=== PATIENT | female | born 1980 | race Caucasian/White ===

== ENCOUNTER 2016-12-10 16:05 | Emergency (ER) | payer BC ==
[~2016-12-10] VITALS: Ht 177.8 cm; Wt 70.0 kg
[~2016-12-10 16:05] MED LIST: METH10TA4 PO; OXYC1TAB3 PO
[2016-12-10 16:09] VITALS: BP 137/80; PULSE 134; TEMP 36.9; O2SAT 99; Ht 177.8 cm; Wt 70.0 kg
--- NOTE | 2016-12-10 16:51 | EMERGENCY ROOM VISIT NOTE ---
ED Visit Note First contact with patient: 16:21 Chief Complaint: S/P Hysterectomy, Abdominal Pain History of Present Illness: Patient is a 35-year-old female who presents to the emergency department by private vehicle with her friend for evaluation of her pain and urinary issues after having a hysterectomy performed. She had a hysterectomy performed 6 days ago at the [facility]. She reports that since that time she's had pain since the surgery. She reports that her pain was so intense that she actually had to have a "nerve block" for her stay in the hospital. She was eventually discharged after pain was somewhat controlled. She reports that she's been taking Percocet 2 for her pain every 6 hours. She's been having consistent burning sensation to the incision site. In addition, she reports issues with urination including dribbling of urine when attempting to go. She's been constipated as well. She had a follow-up appointment with her [employer]MENT[employer]PER today who informed her that everything looked fine. She was provided outpatient orders for urinalysis. She rates her current discomfort as 6/10. Patient denies any fevers, chills, chest pain, palpitations , shortness of breath, nausea or vomiting. Medications: Reviewed and discussed with the patient. Allergies: Acetaminophen, propoxyphene PMH: No pertinent past medical history. SHx: Patient is a 35-year-old female who lives locally. ROS: All pertinent positive and negative review of systems are appropriately documented in the History of Present Illness. Physical Exam: VITAL SIGNS - Vital signs and nursing notes were reviewed. GENERAL - 35-year-old female appearing her stated age who is in no acute distress. Communicates well with provider and answers questions appropriately. ABDOMEN - well healing incision site noted in the suprapubic area. No dehiscence. No surrounding erythema, discharge, or drainage. Subjective tenderness to palpation in the lower abdomen. Bowel sounds distant. No rigidity or guarding. PSYCH - A&Ox3 and cooperates fully with examiner. Pt is very pleasant and interacts well with examiner. ED Course: Patient was seen and evaluated by myself. I had a lengthy conversation with the patient and her friend regarding ongoing symptoms. I did offer them imaging studies which she readily declines as she reports that she's had a CAT scan recently and is at risk for developing cancer. I did explain the patient' s symptoms could be equated to her narcotic pain medication use, particularly her voiding issues as well as her constipation. She had not thought of this to this point. Her incision does not appear infected. The patient had just seen her F[employer] CE[employer] DR[employer]PER today who had no suggestion and felt that she was doing well. She presented to the emergency department today for a "second opinion". At this point, the patient was comfortable with urinalysis dip which was found to be unremarkable. She was encouraged to decrease her narcotic pain use and increase [id number] medication for breakthrough symptoms. She was educated on worrisome symptoms for return visit to the emergency department. Patient discharged home afebrile and in good condition. In the evaluation and treatment of this patient, the following differential diagnoses were considered: Postoperative infection, retroperitoneal hematoma, cellulitis, amongst others. Impression: Postoperative Pain, Voiding Issues, Constipation Discharge Instructions: You've been seen in the emergency department today for your postoperative pain and voiding issues. Please decrease your narcotic use to help with your symptoms. For pain control, you can use the following [id number] medicines (if >12 yo): - Regular strength (325mg/tab) Tylenol (acetaminophen) 2 tabs every 4-6 hours as needed. Do not exceed 12 tablets in a 24 hour period. Avoid taking more than 4 grams (4000 mg) of Tylenol per day. This includes any other sources of acetaminophen you may take on a regular basis. - Regular strength (200 mg/tab) Advil (ibuprofen) 1-2 tabs every 4-6 hours as needed. Do not exceed a dose of 3200 mg per day. Follow-up with your [employer]PER from today's visit. Return for any changing or worsening symptoms. Problem List Medical Problems: (1) Anxiety Status: Chronic (2) Depression Status: Chronic Surgical Problems: (1) H/O umbilical hernia repair Status: Chronic (2) S/P Status: Chronic Current/Historical Medications Scheduled Amphetamine-Dextroamphetamine 20MG (Adderall Xr 20MG), 20 MG PO QAM Escitalopram Oxalate (Lexapro), 20 MG PO DAILY Ibuprofen (Advil), 200-600 MG PO Q4H Venlafaxine Hcl (Effexor), 37.5 MG PO DAILY Scheduled PRN Clonazepam (Klonopin), 0.5 MG PO TID PRN for Anxiety/Agitation Oxycodone/Acetaminophen 5MG/325MG (Percocet 5MG/325MG), 2 TABLETS PO Q4H PRN for Pain Allergies Coded Allergies: Acetaminophen (Verified Allergy, Severe, FINE RASH ALL OVER BODY, 12/10/16) Propoxyphene (Verified Allergy, Severe, FINE RASH ALL OVER BODY, 12/10/16) Vital Signs Date Time Temp Pulse Resp B/P Pulse Ox O2 Delivery O2 Flow Rate FiO2 12/10/16 16:09 36.9 134 20 137/80 99 Laboratory Results Test 12/10/16 16:38 Urine Color YELLOW Urine Appearance CLEAR (CLEAR) Urine pH 7.0 (4.5-7.5) Urine Specific [place] 1.007 (1.000-1.030) Urine Protein NEG (NEG) Urine Glucose (UA) NEG (NEG) Urine Ketones NEG (NEG) Urine Occult Blood NEG (NEG) Urine Nitrite NEG (NEG) Urine Bilirubin NEG (NEG) Urine Urobilinogen NEG (NEG) Urine Leukocyte Esterase NEG (NEG) Departure Information Impression Primary Impression: Postoperative pain Additional Impressions: Difficulty voiding Constipation Dispostion Home / Self-Care Condition GOOD Referrals Jn Yu M.D. (PCP) Patient Instructions [facility] Additional Instructions You've been seen in the emergency department today for your postoperative pain and voiding issues. Please decrease your narcotic use to help with your symptoms. For pain control, you can use the following [id number]-[id number] medicines (if >12 yo): - Regular strength (325mg/tab) Tylenol (acetaminophen) 2 tabs every 4-6 hours as needed. Do not exceed 12 tablets in a 24 hour period. Avoid taking more than 4 grams (4000 mg) of Tylenol per day. This includes any other sources of acetaminophen you may take on a regular basis. - Regular strength (200 mg/tab) Advil (ibuprofen) 1-2 tabs every 4-6 hours as needed. Do not exceed a dose of 3200 mg per day. Follow-up with your [employer]PER from today's visit. Return for any changing or worsening symptoms. Problem Qualifiers Additional Impressions: Constipation Constipation type: unspecified constipation type Qualified Codes: K59.00 - Constipation, unspecified
[2016-12-10] MEDS ORDERED: OXYC-57 PO (17:04)
[2016-12-10 17:23] LABS: URINE APPEARANCE CLEAR (CLEAR); URINE BILIRUBIN NEG (NEG); URINE COLOR YELLOW; URINE NITRITE NEG (NEG); URINE SPECIFIC GRAVITY 1.007 (1.000-1.030); UROBILINOGEN NEG (NEG); ZZUR CULT IF INDIC CLEAN CATCH NO
--- NOTE | 2016-12-10 17:23 | EMERGENCY ROOM VISIT NOTE ---
ED Visit Note First contact with patient: 16:21 This Patient was discussed with the physician Value Analyst, Ethan Torres PA-C. The pertinent historical and physical exam findings were confirmed. I agree with the studies ordered and with the interpretations of these studies. I agree with the disposition and care plan.
[2016-12-10 17:25] LABS: MANUAL MICROSCOPIC REQUIRED? NO; REVIEW REQ? NO
[2017-03-15] MEDS ORDERED: CLON0.5T3 PO (10:16)
[2017-03-15] MEDS ORDERED: EFF/375 PO (10:16)
[2017-03-15] MEDS ORDERED: ESCI1TAB10 PO (14:17)
== END 2016-12-10 18:04 | disposition home or self-care (01) ==
LOC: C.EDB 16:07 → C.EDC 18:04
DX: G89.18 Other acute postprocedural pain (principal); R39.198 Other difficulties with micturition; K59.00 Constipation, unspecified; F41.9 Anxiety disorder, unspecified; F32.9 Major depressive disorder, single episode, unspecified; Z90.710 Acquired absence of both cervix and uterus

== ENCOUNTER 2017-03-15 15:57 | Emergency (ER) | payer BC ==
[~2017-03-15] VITALS: Ht 177.8 cm; Wt 69.0 kg
[~2017-03-15 15:57] MED LIST changes: +CLON0.5T3 PO; +EFF/375 PO; +ESCI1TAB10 PO; -METH10TA4 PO; +OXYC-57 PO; -OXYC1TAB3 PO
[2017-03-15 16:00] VITALS: TEMP 36.7; Ht 177.8 cm; Wt 69.0 kg
[2017-03-15] MEDS ORDERED: AMPH10TA2 PO (16:30)
[2017-03-15] MEDS ORDERED: ISOT1CAP PO (16:30)
[2017-03-15] MEDS ORDERED: SUMA25TA12 PO (16:32)
[2017-03-15 16:57] LABS: BASO % 0.2 %; BASO ABS # 0.01 K/uL (0-0.2); COMPLETE YES; EOS % 0.6 %; LYMPH % 29.7 %; MEAN CORPUSCULAR HEMOGLOBIN 29.8 pg (25-34); MEAN CORPUSCULAR HGB CONC 33.8 g/dl (32-36); MEAN PLATELET VOLUME 10.1 fL (7.4-10.4); NEUT % 64.5 %; PLATELET COUNT 203 K/uL (130-400); RED BLOOD COUNT 4.43 M/uL (4.2-5.4); WHITE BLOOD COUNT 5.39 K/uL (4.8-10.8)
[2017-03-15] MEDS ORDERED: IBUP-1050 PO (17:05)
[2017-03-15] MEDS ORDERED: AMPH20CA3 PO (17:05)
[2017-03-15 17:20] LABS: BUN/CREATININE RATIO 7.8 (10-20); CALCIUM 8.5 mg/dl (8.5-10.1); CREATININE 0.66 mg/dl (0.60-1.20); POTASSIUM 3.7 mmol/L (3.5-5.1)
[2017-03-15] MEDS ORDERED: MBXC PO (17:51)
[2017-03-15 17:58] LABS: LYME DISEASE AB IGG NEG (NEG)
[2017-03-15 18:00] LABS: LYME DISEASE AB IGM EQUIVOCAL (NEG)
[2017-03-15] MEDS ORDERED: DOXY100C2 PO (18:17)
[2017-03-15] MEDS ORDERED: OXYC1TAB3 PO (18:17)
[2017-03-15 18:36] VITALS: BP 122/93; PULSE 85; O2SAT 97
--- NOTE | 2017-03-16 23:20 | EMERGENCY ROOM VISIT NOTE ---
ED Visit Note First contact with patient: 16:13 Chief Complaint: Rash. History of Present Illness: Ms. Villarreal is a 36-year-old white female who ambulates into the ED complaining of a round erythematous rash over the right hip and right inguinal lymphadenopathy. Historically patient reports she had a tick bite approximately 3 months ago on her back. Patient reports 3-4 days ago she started noticing a mild erythematous rash over the lateral aspect of the iliac crest on the right. She reports it was mildly painful on its initial presentation. Over the last couple of days the circular rash has been increasing in size and has becoming more red and hot. The area is also becoming increasingly more tender with palpation. One day ago she noted mild tenderness in the right inguinal area. And then today she reports she was feeling lumps and the pain had increased in intensity in the right inguinal area. Currently she describes pain in both areas as sharp with palpation. Her inguinal area is also sharp with weightbearing and palpation. She rates her discomfort 10/10. The pain is nonradiating. She has not identified any alleviating factors related to the pain. She has been using ibuprofen without relief of her discomfort. Associated with her pain she reports her skin eruption has been slightly itchy and she has been nauseated and has had a decreased appetite and she has been having chills but no leann fevers.. She denies any additional skin lesions or recent soft tissue injury, sweats, upper respiratory tract symptoms, cough, chest pain, shortness of breath, abdominal pain, urinary symptoms, hematuria, back/flank pain, extremity weakness /numbness/tingling, joint pains, headaches. Review of Systems: As noted above in history of present illness. All body systems were reviewed and found to be negative as noted above. Past Medical History: Migraine headaches, unspecified skin disorder, unspecified urinary problems, kidney stones, status post hysterectomy, appendectomy, unspecified back surgery, breast augmentation, tonsillectomy, adenoidectomy, section and umbilical hernia repair. Current Medications: Medications Dose Route/Sig Max Daily Dose Days Date Category Dose Instructions Imitrex (Sumatriptan Succinate) 25 Mg Tab 25 Mg PO PRN 03/15/17 Reported Adderall 10MG (Amphetamine-Dextroamphetamine 10MG) 1 Tab Tab 10 Mg PO DAILY 03/15/17 Reported TAKES AT NOON Absorica (Isotretinoin) 30 Mg Cap 30 Mg PO BID 03/15/17 Reported Advil (Ibuprofen) 200 Mg Tab 200-600 Mg PO Q4H PRN 12/10/16 Reported Adderall Xr 20MG (Amphetamine-Dextroamphetamine 20MG) 1 Cap Cap 20 Mg PO QAM 12/10/16 Reported Effexor (Venlafaxine Hcl) 37.5 Mg Tab 37.5 Mg PO DAILY 11/06/15 Reported Klonopin (Clonazepam) 0.5 Mg Tab 0.5 Mg PO TID PRN 11/06/15 Reported Lexapro (Escitalopram Oxalate) 20 Mg Tab 20 Mg PO DAILY 03/29/14 Reported Allergies to Medications: Acetaminophen, propoxyphene. Social History: Patient is currently employed; she feels safe in her home environment; she admits to tobacco and alcohol use. Physical Examination: Vital Signs: Date Time Temp Pulse Resp B/P (MAP) Pulse Ox O2 Delivery O2 Flow Rate FiO2 03/15/17 18:36 85 18 122/93 97 Room Air 03/15/17 16:00 36.7 98 20 158/95 99 Room Air GENERAL: 36-year-old female in moderate distress due to pain, nontoxic-appearing , afebrile and hemodynamically stable. NEUROLOGICAL: Awake, alert and oriented to person, place and time. Answering questions appropriately and following commands. Normal gait. Good hand eye coordination. No focal motor sensory deficits. SKIN: Warm, dry and pink. Right lateral iliac crest: Shows a 4-5 cm area of dark erythema without central clearing. This area is spread beyond a line of demarcation put on by the patient's boyfriend. It is indurated but not fluctuant. There is no lymphangitis. HEENT: Atraumatic and normocephalic. PERRLA. Sclera white and conjunctiva pink. No drainage from naris. Oral cavity moist and pink. Pharynx is nonerythematous or edematous. Speech normal. No cervical lymphadenopathy. Trachea midline. No jugular venous distention. BACK: No tenderness over the bony spine. No CVA tenderness. THORAX: Lungs sounds are clear to auscultation and equal bilaterally with symmetrical chest wall. No wheezing, rales or rhonchi. No crepitus, tenderness , subcutaneous air or deformities noted. HEART: Regular rate and rhythm. No gallops, rubs or murmurs are appreciated. ABDOMEN: Flat and tender over her recent hysterectomy scar. The scars without signs of infection and is clean and dry. Decreased bowel sounds in all quadrants. No guarding, rigidity or organomegaly. Positive right-sided inguinal lymphadenopathy. EXTREMITIES: Moves all extremities well on command and with purpose. All distal neurovascular statuses are intact and equal bilaterally. No calf tenderness or cords. ED Course: Patient is assessed as noted above. Patient's medication list was reviewed. Laboratory Results: Test 03/15/17 16:46 Range/Units White Blood Count 5.39 4.8-10.8 K/uL Red Blood Count 4.43 4.2-5.4 M/uL Hemoglobin 13.2 12.0-16.0 g/dL Hematocrit 39.0 37-47 % Mean Corpuscular Volume 88.0 80-100 fL Mean Corpuscular Hemoglobin 29.8 25-34 pg Mean Corpuscular Hemoglobin Concent 33.8 32-36 g/dl Platelet Count 203 130-400 K/uL Mean Platelet Volume 10.1 7.4-10.4 fL Neutrophils (%) (Auto) 64.5 % Lymphocytes (%) (Auto) 29.7 % Monocytes (%) (Auto) 5.0 % Eosinophils (%) (Auto) 0.6 % Basophils (%) (Auto) 0.2 % Neutrophils # (Auto) 3.48 1.4-6.5 K/uL Lymphocytes # (Auto) 1.60 1.2-3.4 K/uL Monocytes # (Auto) 0.27 0.11-0.59 K/uL Eosinophils # (Auto) 0.03 0-0.5 K/uL Basophils # (Auto) 0.01 0-0.2 K/uL RDW Standard Deviation 39.2 36.4-46.3 fL RDW Coefficient of Variation 12.2 11.5-14.5 % Immature Granulocyte % (Auto) 0.0 % Immature Granulocyte # (Auto) 0.00 0.00-0.02 K/uL Sodium Level 142 136-145 mmol/L Potassium Level 3.7 3.5-5.1 mmol/L Chloride Level 107 98-107 mmol/L Carbon Dioxide Level 28 21-32 mmol/L Anion Gap 7.0 3-11 mmol/L Blood Urea Nitrogen 5 7-18 mg/dl Creatinine 0.66 0.60-1.20 mg/dl Est Creatinine Clear Calc Drug Dose 127.4 ml/min Estimated GFR () 131.7 Estimated GFR (Non- 113.6 BUN/Creatinine Ratio 7.8 10-20 Random Glucose 88 70-99 mg/dl Calcium Level 8.5 8.5-10.1 mg/dl Chemistry Specimen Hemolysis Lyme Disease IgG Antibody NEG NEG Lyme Disease IgM Antibody EQUIVOCAL NEG Patient was offered pain medications and refused. Patient's case was reviewed with Dr. Paniagua; we agreed on diagnostic approach , treatment, disposition and plan per Patient was educated about today's findings and instructed on her treatment plan ; she verbalizes understanding and agreement with this plan. Clinical Impression: Skin infection. Right inguinal lymphadenopathy. Equivocal Lyme titer. Decision-Making: Initially my differential diagnosis I considered cellulitis, Lyme's disease, contusion, abscess, postsurgical infection other insect bites and other causes. Disposition: Patient discharged home in stable condition; prior to departure she was reassessed and subjectively reported she was feeling better. Plan: Patient was encouraged to use ibuprofen for mild pain and she was given a prescription for OxyIR 5 mg every 6 hours for severe pain. Patient's name was checked in the state database in no red flags identified. Patient was given appropriate narcotic precautions. Because patient's Lyme titer was equivocal patient was prescribed 100 mg of doxycycline 2 times a day for 14 days with follow-up with PCP for recheck and Western blot testing. Patient was encouraged return the ED for worsening pain, fevers, increasing redness/swelling, red streaking or any new/concerning symptoms.
[2017-03-19 13:12] LABS: 18KDIGG BAND NONREACTIVE (NONREACTIVE); 23KDIGG BAND NONREACTIVE (NONREACTIVE); 23KDIGM BAND REACTIVE (NONREACTIVE); 28KDIGG BAND NONREACTIVE (NONREACTIVE); 30KDIGG BAND NONREACTIVE (NONREACTIVE); 39KDIGG BAND NONREACTIVE (NONREACTIVE); 39KDIGM BAND NONREACTIVE (NONREACTIVE); 41KDIGG BAND REACTIVE (NONREACTIVE); 41KDIGM BAND NONREACTIVE (NONREACTIVE); 45KDIGG BAND NONREACTIVE (NONREACTIVE); 58KDIGG BAND NONREACTIVE (NONREACTIVE); 66KDIGG BAND NONREACTIVE (NONREACTIVE); 93KDIGG BAND NONREACTIVE (NONREACTIVE)
== END 2017-03-15 18:37 | disposition home or self-care (01) ==
LOC: C.EDD 15:58
DX: L08.9 Local infection of the skin and subcutaneous tissue, unspecified (principal); R59.0 Localized enlarged lymph nodes; Z87.442 Personal history of urinary calculi; Z90.710 Acquired absence of both cervix and uterus; Z79.899 Other long term (current) drug therapy; Z72.0 Tobacco use